=== PATIENT | male | born 1985 | race African-American/Black ===

== ENCOUNTER → 2016-10-28 | Outpatient (CLI) | payer MEDICARE, MEDICAID ==
[~2016-10-28] MED LIST: ALBU90AE IH; HYDR-4005 PO
== END | disposition home or self-care (01) ==
LOC: CT 11:13
PROVIDERS: ATTEND Neurological Surgery
DX: G93.89 Other specified disorders of brain (principal)
CPT/HCPCS: 70450

== ENCOUNTER 2017-04-06 13:15 | Emergency (ER) | payer MEDICARE, MEDICAID ==
[~2017-04-06] VITALS: Ht 180.3 cm; Wt 103.0 kg
[2017-04-06 15:59] LABS: BASOPHILS % 0.8 % (0.0-2.0); HEMOGLOBIN. 14.1 g/dL (14.0-18.0); LYMPHOCYTES % 23.6 % (20.0-50.0); MEAN CORPUSCULAR HEMOGLOBIN 28.4 pg (28.0-32.0); MEAN CORPUSCULAR VOLUME 84.6 fL (80.0-94.0); MEAN PLATELET VOLUME 8.7 fl (7.4-10.4); MONOCYTES % 5.4 % (2.0-8.0); NEUTROPHILS % 69.2 % (40.0-76.0); PLATELET 304 x1000/uL (130-400); RED BLOOD CELL COUNT 4.96 mill/uL (4.7-6.1); RED CELL DISTRIBUTION WIDTH 13.3 % (11.6-14.6)
[2017-04-06 16:00] LABS: CHLORIDE 104 mEq/L (98-107)
[2017-04-06] MEDS ORDERED: LEVETIRACETAM 500MG PREMIX 100 ML IV ONE (16:00)
[2017-04-06 16:09] LABS: CARBON DIOXIDE 26 mEq/L (21-32)
[2017-04-06 16:11] LABS: CARBAMAZEPINE < 0.5 ug/mL (4-12); PHENOBARBITAL < 2.1 ug/mL (15.0-40.0)
[2017-04-06 16:12] LABS: VALPROIC ACID < 3.0 ug/mL (50-100)
[2017-04-06 17:40] VITALS: BP 108/62
== END 2017-04-06 18:05 | disposition home or self-care (01) ==
LOC: ER 15:37
DX: G40.409 Other generalized epilepsy and epileptic syndromes, not intractable, without status epilepticus (principal); F32.9 Major depressive disorder, single episode, unspecified; J45.909 Unspecified asthma, uncomplicated; G43.909 Migraine, unspecified, not intractable, without status migrainosus; Z91.14 Patient's other noncompliance with medication regimen; F17.210 Nicotine dependence, cigarettes, uncomplicated; Z98.890 Other specified postprocedural states; Z87.820 Personal history of traumatic brain injury
CPT/HCPCS: 36415; 71010; 80053; 80156; 80165; 80184; 80185; 85025; 93005; 96365; 99285; J1953

== ENCOUNTER → 2017-04-24 | Outpatient (CLI) | payer MEDICARE, MEDICAID | END | disposition home or self-care (01) | LOC: CT 09:34 | PROVIDERS: ATTEND Neurological Surgery | DX: S01.90XA Unspecified open wound of unspecified part of head, initial encounter (principal); Z98.890 Other specified postprocedural states; X58.XXXA Exposure to other specified factors, initial encounter; Y93.89 Activity, other specified; Y92.89 Other specified places as the place of occurrence of the external cause; Y99.8 Other external cause status | CPT/HCPCS: 70450 ==

== ENCOUNTER → 2017-06-03 | Outpatient (CLI) | payer MEDICARE, MEDICAID | END | disposition home or self-care (01) | LOC: CARD 09:46 | PROVIDERS: ATTEND Psychiatry & Neurology Neurology | DX: R56.9 Unspecified convulsions (principal) ==